=== PATIENT | male | born 1965 | race Caucasian/White ===

== ENCOUNTER 2018-06-16 17:42 | Emergency (ER) | payer MEDICARE ==
[~2018-06-16] VITALS: Ht 175.3 cm; Wt 102.7 kg
[2018-06-16 17:56] VITALS: Ht 175.3 cm; Wt 102.7 kg
[2018-06-16] MEDS ORDERED: BLOOD PRESSURE MED (17:58)
[2018-06-16 19:01] LABS: BASOPHILS 0.2 % (0-2); EOSINOPHILS 0.4 % (0-7); HEMATOCRIT 44.9 % (42.0-54.0); HEMOGLOBIN 16.2 g/dL (13.5-17.5); IMMATURE GRANULOCYTES 0.3 % (0-5); LYMPHOCYTES 17.7 % (15-50); MCH 29.8 pg (26.0-34.0); MCHC 36.1 g/dL (31.0-37.0); MCV 82.5 fL (80.0-100.0); MEAN PLATELET VOLUME 10.3 fL (7.4-10.4); MONOCYTES 4.6 % (2-11); NEUTROPHILS 76.8 % (40-80); PLATELET COUNT 213 10x3/uL (130-400); RBC 5.44 10x6/uL (4.20-6.10); WBC 9.6 10x3/uL (4.8-10.8)
[2018-06-16 19:11] LABS: ALBUMIN 3.5 g/dL (3.4-5.0); ANION GAP 12.5 mmol/L (8-16); BILIRUBIN - TOTAL 0.53 mg/dL (0.2-1.3); CALCIUM 8.4 mg/dL (8.5-10.1); CARBON DIOXIDE 26.9 mmol/L (21.0-32.0); CREATININE - SERUM 1.4 mg/dL (0.6-1.3); POTASSIUM - SERUM 3.4 mmol/L (3.5-5.1); PROTEIN - SERUM 7.5 g/dL (6.4-8.2)
[2018-06-16] MEDS ORDERED: TOBREX5 ML EACH EYE (20:06)
[2018-06-16] MEDS ORDERED: CATAPRES0.2 MG PO (20:06)
[2018-06-16 20:47] VITALS: BP 197/95
== END 2018-06-16 20:40 | disposition home or self-care (01) ==
LOC: D.ER 17:42
PROVIDERS: Emergency Medicine
DX: I10 Essential (primary) hypertension (principal); H04.301 Unspecified dacryocystitis of right lacrimal passage; Z91.14 Patient's other noncompliance with medication regimen